=== PATIENT | male | born 1975 | race Two or more races ===

== ENCOUNTER 2024-12-11 13:26 | Outpatient (CLI) | payer OTHER ==
[~2024-12-11 13:26] MED LIST: METFORMIN HCL500 MG PO; ZOCOR40 MG PO
== END 2024-12-11 13:31 | disposition home or self-care (01) ==
LOC: SONOGRAMA 13:26
PROVIDERS: ATTEND Internal Medicine Nephrology
DX: K76.0 Fatty (change of) liver, not elsewhere classified (principal)